=== PATIENT | male | born 1970 | race Two or more races ===

== ENCOUNTER 2020-07-22 16:33 | Emergency (ER) | payer OTHER ==
[~2020-07-22] VITALS: Ht 177.8 cm; Wt 134.9 kg
[~2020-07-22 16:33] MED LIST: ASPI81TA45 PO; ATOR-2 PO; CEFD300C37 PO; DOXY100T PO; METO50TA82 PO; NITR0.4T28 SL
--- NOTE | 2020-07-22 17:14 | NUR ---
PT CAME CO OF RIGHT HAND SWELLING AND PAIN. PT WAS ADMITTED TO [facility] LAST TUESDAY FOR UT AND HAD A STENT PLACED ON TUESDAY MORNING AND THE HOTEL HOUSEKEEPER USED THE RIGHT WRIST FOR ACCESS. PT DENIES SOB AND CP AT THIS TIME. PT RESTING IN [facility]. CONNECTED TO ALL MONITORING EQUIPMENT. IS BEDSIDE.
[2020-07-22 17:42] LABS: TROPONIN I 0.094 ng/mL (0.000-0.045)
--- NOTE | 2020-07-22 19:20 | NUR ---
PT SITTING UP ON GURNEY WATCHING TV. VSS. NAD. PT STATES NO NEEDS AT THIS TIME. CALL LIGHT W/IN REACH.
[2020-07-22 19:51] VITALS: BP 123/73
--- NOTE | 2020-07-22 20:45 | NUR ---
PT AMBULATED TO DISCHARGE WITH STEADY GAIT. PT ENCOURAGED TO FOLLOWUP DISCUSSED. PT EDUCATED TO RETURN TO THE ED WITH WORSENING SYMPTOMS. RX GIVEN TO PT.
== END 2020-07-22 20:48 | disposition home or self-care (01) ==
LOC: ED 17:32
DX: M10.041 Idiopathic gout, right hand (principal); M79.641 Pain in right hand; R94.31 Abnormal electrocardiogram [ECG] [EKG]
CPT/HCPCS: 36415; 84484; 84550; 93005; 99285

== ENCOUNTER → 2020-08-18 | Outpatient (CLI) | payer OTHER | END | disposition home or self-care (01) | LOC: CVU 13:48 | PROVIDERS: ATTEND Internal Medicine Cardiovascular Disease | DX: I08.1 Rheumatic disorders of both mitral and tricuspid valves (principal); I11.9 Hypertensive heart disease without heart failure; I42.9 Cardiomyopathy, unspecified | CPT/HCPCS: 93306 ==